=== PATIENT | female | born 1980 | race Caucasian/White ===

== ENCOUNTER 2018-01-26 09:19 | Emergency (ER) | payer OTHER ==
[~2018-01-26] VITALS: Ht 162.6 cm; Wt 102.1 kg
[2018-01-26 09:52] VITALS: BP 132/78
[2018-01-26 10:25] LABS: BASO # 0.1 x10^3/uL (0.0-0.2); BASO % 2 % (0-3); EOS # 0.2 x10^3/uL (0.0-0.7); EOS % 2 % (0-3); HEMATOCRIT 40.7 % (36.0-47.0); HEMOGLOBIN 13.6 g/dL (12.0-15.5); LYMPH # 2.4 x10^3/uL (1.0-4.8); LYMPH % 28 % (24-48); MEAN CORPUSCULAR HEMOGLOBIN 28 pg (25-35); MEAN CORPUSCULAR HGB CONC 33 g/dL (31-37); MEAN CORPUSCULAR VOLUME 82 fL (79-100); MONO # 0.6 x10^3/uL (0.0-1.1); MONO % 7 % (0-9); NEUT # 5.5 x10^3uL (1.8-7.7); NEUT % 62 % (31-73); PLATELET COUNT 387 x10^3/uL (140-400); RED BLOOD COUNT 4.94 x10^6/uL (3.50-5.40); RED CELL DISTRIBUTION WIDTH 14.6 % (11.5-14.5); WHITE BLOOD COUNT 8.8 x10^3/uL (4.0-11.0)
[2018-01-26 10:32] LABS: PREG TEST PT QUAL NEGATIVE (NEG)
--- NOTE | 2018-01-26 10:33 | RAD ---
PQRS Compliance Statement: One or more of the following individualized dose reduction techniques were utilized for this examination: 1. Automated exposure control 2. Adjustment of the mA and/or kV according to patient size 3. Use of iterative reconstruction technique CT ABDOMEN PELVIS WO CONTRAST Clinical Indication: right and left flank pain today Comparison: None. Technique: Helical CT imaging of the abdomen and pelvis is performed without IV or oral contrast. Findings: Evaluation of solid organs and bowel is limited without oral and IV contrast, decreasing sensitivity for detection of pathology. Lung bases are clear. Cardiac size normal. Liver, spleen, gallbladder, pancreas, adrenal glands, and abdominal aorta are normal. There is no renal, ureteral, or bladder calculus. There is no perinephric stranding or hydronephrosis. Stomach unremarkable. No dilated small bowel. Appendectomy. No colon wall thickening. Moderate colon stool volume. There are multiple subcentimeter mesenteric lymph nodes. There is no adenopathy or free fluid. Urinary bladder is normal. Uterus unremarkable. There is left adnexal cyst measuring 7.5 x 5.6 x 5.9 cm. A clot sign is seen in the cyst is likely ovarian. There is trace pelvic free fluid. No acute bone abnormality. IMPRESSION: 1. Large left ovarian cyst. Trace pelvic free fluid. 2. No obstructive uropathy. 3. Moderate colon stool volume. Electronically signed by: Ector Salgado MD (01/26/2018 10:30 AM) [id number]
[2018-01-26 10:45] LABS: ALBUMIN 3.7 g/dL (3.4-5.0); ALBUMIN/GLOBULIN RATIO 0.9 (1.0-1.7); CREATININE 0.7 mg/dL (0.6-1.0); GFR 94.7; POTASSIUM 3.6 mmol/L (3.5-5.1); TOTAL BILIRUBIN 0.1 mg/dL (0.2-1.0); TOTAL PROTEIN 7.6 g/dL (6.4-8.2)
[2018-01-26 10:47] LABS: AMPHETAMINE/METHAMPHETAMINE NEG (NEG); BARBITURATES NEG (NEG); BENZODIAZEPINES NEG (NEG); CANNABINOIDS NEG (NEG); COCAINE NEG (NEG); METHADONE NEG (NEG); OPIATES NEG (NEG); PHENCYCLIDINE NEG (NEG)
--- NOTE | 2018-01-26 10:54 | PHYS DOC ---
Past History Past Medical History: No Pertinent History Past Surgical History: Appendectomy Smoking: Non-smoker Additional Smoking Information: VAPES Alcohol Use: None Drug Use: None Adult General Chief Complaint Chief Complaint: ABDOMINAL PAIN [facility] HPI Patient is a 37 year old female who presents with complaining of sudden onset of left lower quadrant pain that started about an over ago while she was at work as a sharp pain with moving and standing up and rated her pain 7/10. Patient states she does not have any pain with supine position. Patient denies radiation of pain, nausea and vomiting, fever and chills, diarrhea, history of the same pain. Patient complaining of chronic constipation and urinary dysuria. Patient complaining of right lower quadrant pain for one and half months as a constant pain and was seen by her primary care physician and had multiple tests and evaluation and was told she had the left ovarian cyst of 6 cm did not have any referral to GEOMETRY PROFESSOR. Review of Systems Review of Systems Constitutional: Denies fever or chills [] Eyes: Denies change in visual acuity, redness, or eye pain [] HENT: Denies nasal congestion or sore throat [] Respiratory: Denies cough or shortness of breath [] Cardiovascular: No additional information not addressed in HPI [] GI: Reports abdominal pain, denies nausea, vomiting, bloody stools or diarrhea [ ] : Denies dysuria or hematuria [] Musculoskeletal: Denies back pain or joint pain [] Integument: Denies rash or skin lesions [] Neurologic: Denies headache, focal weakness or sensory changes [] Endocrine: Denies polyuria or polydipsia [] All other systems were reviewed and found to be within normal limits, except as documented in this note. Allergies Allergies Allergies Coded Allergies Type Severity Reaction Last Updated Verified codeine Allergy Severe hives, anaphylaxis 01/26/18 Yes Physical Exam Physical Exam Constitutional: Well developed, well nourished, no acute distress, non-toxic appearance. [] HENT: Normocephalic, atraumatic Eyes: PERRLA, EOMI, conjunctiva normal, no discharge. [] Neck: Normal range of motion, no tenderness, supple, no stridor. [] Cardiovascular:Heart rate regular rhythm, no murmur [] Lungs & Thorax: Bilateral breath sounds clear to auscultation [] Abdomen: Bowel sounds normal, soft, no tenderness, no masses, no pulsatile masses. [] Skin: Warm, dry, no erythema, no rash. [] Back: No tenderness, no CVA tenderness. [] Extremities: No tenderness, no cyanosis, no clubbing, ROM intact, no edema. [] Neurologic: Alert and oriented X 3, normal motor function, normal sensory function, no focal deficits noted. [] Psychologic: Affect normal, judgement normal, mood normal. [] Current Patient Data Vital Signs Vital Signs Date Time Temp Pulse Resp B/P (MAP) Pulse Ox O2 Delivery O2 Flow Rate FiO2 01/26/18 09:52 98.4 90 22 94 Room Air Lab Results Laboratory Tests Test 01/26/18 10:12 White Blood Count 8.8 x10^3/uL (4.0-11.0) Red Blood Count 4.94 x10^6/uL (3.50-5.40) Hemoglobin 13.6 g/dL (12.0-15.5) Hematocrit 40.7 % (36.0-47.0) Mean Corpuscular Volume 82 fL (79-100) Mean Corpuscular Hemoglobin 28 pg (25-35) Mean Corpuscular Hemoglobin Concent 33 g/dL (31-37) Red Cell Distribution Width 14.6 % (11.5-14.5) H Platelet Count 387 x10^3/uL (140-400) Neutrophils (%) (Auto) 62 % (31-73) Lymphocytes (%) (Auto) 28 % (24-48) Monocytes (%) (Auto) 7 % (0-9) Eosinophils (%) (Auto) 2 % (0-3) Basophils (%) (Auto) 2 % (0-3) Neutrophils # (Auto) 5.5 x10^3uL (1.8-7.7) Lymphocytes # (Auto) 2.4 x10^3/uL (1.0-4.8) Monocytes # (Auto) 0.6 x10^3/uL (0.0-1.1) Eosinophils # (Auto) 0.2 x10^3/uL (0.0-0.7) Basophils # (Auto) 0.1 x10^3/uL (0.0-0.2) Sodium Level 135 mmol/L (136-145) L Potassium Level 3.6 mmol/L (3.5-5.1) Chloride Level 101 mmol/L (98-107) Carbon Dioxide Level 25 mmol/L (21-32) Anion Gap 9 (6-14) Blood Urea Nitrogen 13 mg/dL (7-20) Creatinine 0.7 mg/dL (0.6-1.0) Estimated GFR (Cockcroft-Gault) 94.7 BUN/Creatinine Ratio 19 (6-20) Glucose Level 94 mg/dL (70-99) Calcium Level 9.0 mg/dL (8.5-10.1) Total Bilirubin 0.1 mg/dL (0.2-1.0) L Aspartate Amino Transferase (AST) 14 U/L (15-37) L Alanine Aminotransferase (ALT) 23 U/L (14-59) Alkaline Phosphatase 54 U/L (46-116) Total Protein 7.6 g/dL (6.4-8.2) Albumin 3.7 g/dL (3.4-5.0) Albumin/Globulin Ratio 0.9 (1.0-1.7) L Serum Test, Qualitative Negative (NEG) EKG EKG [] Radiology/Procedures Radiology/[place] [address] IMAGING REPORT Signed PATIENT: ARMANI HILL ACCOUNT: [id number] : 1980 LOCATION: ER AGE: 37 SEX: F EXAM STATUS: REG ER ORD. PHYSICIAN: RAJNI YOUSIF MD REASON: left lower quadrant pain for 1 hour PROCEDURE: CT ABDOMEN PELVIS WO CONTRAST PQRS Compliance Statement: One or more of the following individualized dose reduction techniques were utilized for this examination: 1. Automated exposure control 2. Adjustment of the mA and/or kV according to patient size 3. Use of iterative reconstruction technique CT ABDOMEN PELVIS WO CONTRAST Clinical Indication: right and left flank pain today Comparison: None. Technique: Helical CT imaging of the abdomen and pelvis is performed without IV or oral contrast. Findings: Evaluation of solid organs and bowel is limited without oral and IV contrast, decreasing sensitivity for detection of pathology. Lung bases are clear. Cardiac size normal. Liver, spleen, gallbladder, pancreas, adrenal glands, and abdominal aorta are normal. There is no renal, ureteral, or bladder calculus. There is no perinephric stranding or hydronephrosis. Stomach unremarkable. No dilated small bowel. Appendectomy. No colon wall thickening. Moderate colon stool volume. There are multiple subcentimeter mesenteric lymph nodes. There is no adenopathy or free fluid. Urinary bladder is normal. Uterus unremarkable. There is left adnexal cyst measuring 7.5 x 5.6 x 5.9 cm. A clot sign is seen in the cyst is likely ovarian. There is trace pelvic free fluid. No acute bone abnormality. IMPRESSION: 1. Large left ovarian cyst. Trace pelvic free fluid. 2. No obstructive uropathy. 3. Moderate colon stool volume. Electronically signed by: Ector Salgado MD (01/26/2018 10:30 AM) [id number] DICTATED AND SIGNED BY: ECTOR SALGADO MD DATE: 01/26/18 1022 CC: RAJNI YOUSIF MD; MIREYA CAMARENA DO ~ Course & Med Decision Making Course & Med Decision Making Pertinent Labs and Imaging studies reviewed. (See chart for details) Evaluation of patient in ER showed 37-year-old male patient with complaining of sudden onset of left lower quadrant pain and chronic right lower quadrant pain. Patient had unremarkable physical exam and denied pain in supine position and didn't want to have pain medication. Patient had 7.5 cm left ovarian cyst with free pelvic fluid and moderate amount of stool in colon. Patient informed about test results needs to follow up with GEOMETRY PROFESSOR. On-call GEOMETRY PROFESSOR doctor Dr Dion Ramos was consulted at 1108 and recommended to follow up with him at his office. Patient informed about test results needs to follow-up and treated with Toradol at the time of discharge and felt better. Dragon Disclaimer Dragon Disclaimer This electronic medical record was generated, in whole or in part, using a voice recognition dictation system. Departure Departure: Impression: Primary Impression: Left ovarian cyst Additional Impressions: Left lower quadrant pain Constipation Right lower quadrant pain Disposition: 01 HOME, SELF-CARE (at 1117) Condition: IMPROVED Referrals: MIREYA CAMARENA DO (PCP) Patient Instructions: Constipation, Adult, Ovarian Cyst Additional Instructions: Follow-up with on-call GEOMETRY PROFESSOR Dr. Dion Sarah in one or 2 days, call to make an appointment Drink plenty of liquids Follow-up with your primary care physician in 3-5 days Return to ER if not getting better Scripts Magnesium Citrate (MAGNESIUM CITRATE) 296 Ml Solution 296 ML PO ONCE for constipation, #296 ML Prov: RAJNI YOUSIF MD 01/26/18 Tramadol Hcl (ULTRAM) 50 Mg Tablet 50 MG PO PRN Q6HRS PRN for PAIN, #20 TAB Prov: RAJNI YOUSIF MD 01/26/18 Problem Qualifiers RAJNI YOUSIF MD Jan 26, 2018 10:54
[2018-01-26 11:08] LABS: BACTERIA,URINE 0 /HPF (0-FEW); BILIRUBIN,URINE NEG (NEG); CLARITY,URINE CLEAR; COLOR,URINE STRAW; GLUCOSE,URINE NEG (NEG); NITRITE,URINE NEG (NEG); RBC,URINE 0 /HPF (0-2); SQUAMOUS EPITHELIAL CELL,UR OCC /LPF; UROBILINOGEN,URINE 0.2 mg/dL (0.2 mg/dL); WBC,URINE 0 /HPF (0-4)
[2018-01-26] MEDS ORDERED: TRAM-48 PO (11:20)
[2018-01-26] MEDS ORDERED: MAGN296S9 PO (11:20)
[2018-01-26] MEDS ORDERED: KETOROLAC 30 MG/ML VIAL. IV ONE (11:20)
== END 2018-01-26 11:38 | disposition home or self-care (01) ==
LOC: ER 09:19
DX: N83.202 Unspecified ovarian cyst, left side (principal); K59.00 Constipation, unspecified; F17.290 Nicotine dependence, other tobacco product, uncomplicated; Z90.89 Acquired absence of other organs; Z88.5 Allergy status to narcotic agent
CPT/HCPCS: 36415; 74176; 80053; 80307; 81001; 84703; 85025; 96374; 99284; J1885